=== PATIENT | female | born 1995 | race Caucasian/White ===

== ENCOUNTER 2017-04-27 20:51 | Emergency (ER) | payer SELFPAY ==
[~2017-04-27] VITALS: Ht 157.5 cm; Wt 72.9 kg
[2017-04-27 20:56] VITALS: BP 111/70
[2017-04-27] MEDS ORDERED: AUGMENTIN875 MG PO (22:28)
[2017-04-27] MEDS ORDERED: CIPRO HC OTIC S10 ML RIGHT EAR (22:38)
== END 2017-04-27 22:55 | disposition home or self-care (01) ==
LOC: EME 20:51
DX: O99.89 Other specified diseases and conditions complicating pregnancy, childbirth and the puerperium (principal); H66.91 Otitis media, unspecified, right ear; H60.91 Unspecified otitis externa, right ear; O99.330 Smoking (tobacco) complicating pregnancy, unspecified trimester; F17.200 Nicotine dependence, unspecified, uncomplicated
CPT/HCPCS: 99281; 99284

== ENCOUNTER 2017-06-18 19:07 | Inpatient (IN) | payer OTHER ==
[2017-06-18] VITALS (7 sets, daily range): BP systolic 109–134; BP diastolic 56–82
[~2017-06-18] VITALS: Ht 157.5 cm; Wt 74.0 kg
[~2017-06-18 19:07] MED LIST: AUGMENTIN875 MG PO; CIPRO HC OTIC S10 ML RIGHT EAR
[2017-06-18 22:33] LABS: AMPHETAMINES QUANT VALUE 0 NG/ML; BARBITUATES QUANT VALUE 0 NG/ML; BENZODIAZEPINES QUANT VALUE 0 NG/ML; BENZODIAZEPINES, URINE SCREEN Negative (200 ng/mL); OPIATES QUANTITATIVE VALUE 0 NG/ML; PHENCYCLIDINE QUANT VALUE 0 NG/ML
[2017-06-19 06:42] LABS: EOSINOPHIL COUNT 0.2 K/uL (0-0.3); HEMATOCRIT 25.8 % (36.0-46.0); IMMATURE GRANULOCYTE (%) 0.4 % (0.0-0.7); IMMATURE GRANULOCYTE COUNT 0.1 K/uL; INSTRUMENT ABS NEUTROPHIL CT 9.6 K/uL; LYMPHOCYTE COUNT 4.4 K/uL (1.0-2.8); MCH 31.5 PG (29.0-34.0); MCHC 33.3 G/DL (30.0-36.0); MCV 94.5 FL (83-99); MEAN PLAT.VOLUME 10.5 uM^3 (9.5-12.4); MONOCYTE (%) 8.3 % (3-12); MONOCYTE COUNT 1.3 K/uL (0-0.8); NEUTROPHIL (%) 61.8 % (45-76); NEUTROPHIL COUNT 9.6 K/uL (1.8-6.4); PLATELET COUNT 163 K/uL (156-360); RBC DIS.WIDTH-CV 13.9 % (11.8-14.6); RBC DIS.WIDTH-SD 47.8 % (39-53); RED BLOOD COUNT 2.73 M/uL (3.80-5.20); WHITE BLOOD COUNT 15.5 K/uL (4.1-10.2)
[2017-06-19 07:57] VITALS: BP 113/64
[2017-06-19 14:44] VITALS: BP 101/59
[2017-06-20 07:30] VITALS: BP 112/58
[2017-06-20 10:39] LABS: EOSINOPHIL (%) 1.6 % (0-5); EOSINOPHIL COUNT 0.2 K/uL (0-0.3); HEMATOCRIT 28.3 % (36.0-46.0); IMMATURE GRANULOCYTE (%) 0.5 % (0.0-0.7); IMMATURE GRANULOCYTE COUNT 0.1 K/uL; INSTRUMENT ABS NEUTROPHIL CT 10.5 K/uL; MCH 31.5 PG (29.0-34.0); MCHC 33.2 G/DL (30.0-36.0); MEAN PLAT.VOLUME 10.5 uM^3 (9.5-12.4); MONOCYTE (%) 5.4 % (3-12); MONOCYTE COUNT 0.8 K/uL (0-0.8); NEUTROPHIL (%) 71.8 % (45-76); NEUTROPHIL COUNT 10.5 K/uL (1.8-6.4); PLATELET COUNT 195 K/uL (156-360); RBC DIS.WIDTH-CV 13.9 % (11.8-14.6); RBC DIS.WIDTH-SD 48.3 % (39-53); RED BLOOD COUNT 2.98 M/uL (3.80-5.20); WHITE BLOOD COUNT 14.6 K/uL (4.1-10.2)
== END 2017-06-20 12:30 | disposition home or self-care (01) | DRG 775 ==
LOC: LDRP-OP 19:07 → 2WEST 19:08 → LDRP-OP 07-17 14:06
PROVIDERS: Advanced Practice Midwife
DX: O70.0 First degree perineal laceration during delivery (principal); O62.3 Precipitate labor; O99.214 Obesity complicating childbirth; Z37.0 Single live birth; E66.3 Overweight; O99.330 Smoking (tobacco) complicating pregnancy, unspecified trimester; F17.200 Nicotine dependence, unspecified, uncomplicated; D62 Acute posthemorrhagic anemia; O99.02 Anemia complicating childbirth; Z3A.40 40 weeks gestation of pregnancy
CPT/HCPCS: 80306 90; 85025; J7120

== ENCOUNTER 2018-04-11 23:27 | Emergency (ER) | payer SELFPAY ==
[~2018-04-11] VITALS: Ht 157.5 cm; Wt 59.6 kg
[2018-04-12] MEDS ORDERED: CIPRODEX OTIC7.5 ML LEFT EAR (01:52)
[2018-04-12 02:29] VITALS: BP 104/67
== END 2018-04-12 02:30 | disposition home or self-care (01) ==
LOC: EME 23:27
DX: H60.92 Unspecified otitis externa, left ear (principal); F17.200 Nicotine dependence, unspecified, uncomplicated
CPT/HCPCS: 99281; 99284